=== PATIENT | female | born 1955 | race Caucasian/White ===

== ENCOUNTER 2024-02-27 05:49 | Inpatient (IN) ==
[~2024-02-27 05:49] MED LIST: Metoclopramide 5 MG/ML VIAL (10 mg) IV PRN; NS 0.45% 1000 ml BAG 1,000 ML IV SCH; Naloxone 0.4 mg VIAL 0.4 mg/ml 1 ml VIAL IV PRN; Ondansetron 4 mg VIAL 2 MG/ML 2 ml VIAL IV PRN; fentaNYL 100 mcg/2 ml 50 MCG/ML VIAL IV PRN
[2024-02-27] MEDS ORDERED: ceFAZolin 2 GM PREMIX 2 GM/50 ML BAG ONE (06:23)
[2024-02-27] MEDS ORDERED: Scopolamine 1 mg/72hr PATCH ONE (06:23)
[2024-02-27] MEDS ORDERED: Tranexamic Acid 1 GM/100ML BAG 0 MG/0 ML BAG IV ONE (06:24)
[2024-02-27] MEDS: Scopolamine 1 mg/72hr PATCH TRANSDERM ONE (06:29)
[2024-02-27 07:04] LABS: Rapid COVID-19 Molecular Undetected (Undetected)
[2024-02-27] MEDS ORDERED: Midazolam 2 mg/2 ml VIAL 1 mg/ml 2 ml VIAL (2 mg) ONE (07:16)
[2024-02-27] MEDS ORDERED: Lidocaine 2% PF 5 ML VIAL ONE (07:16)
[2024-02-27] MEDS ORDERED: fentaNYL 100 mcg/2 ml 50 MCG/ML VIAL ONE (07:16)
[2024-02-27] MEDS ORDERED: Rocuronium 50 mg VIAL 10 mg/ml 5 ml VIAL (50 mg) ONE (07:16)
[2024-02-27] MEDS ORDERED: Propofol 10 MG/ML 20 ML BTL ONE (07:16)
[2024-02-27] MEDS ORDERED: Dexamethasone IV 4 MG/ML VIAL 1 ml VIAL ONE (07:43)
[2024-02-27] MEDS ORDERED: Ondansetron 4 mg VIAL 2 MG/ML 2 ml VIAL ONE (07:43)
[2024-02-27] MEDS ORDERED: HYDROmorphone 0.5 MG/0.5 ML SYRINGE ONE (07:56)
[2024-02-27] MEDS ORDERED: Bupivacaine 0.5% SDV PF 30ML VIAL ONE (08:24)
[2024-02-27] MEDS ORDERED: Sodium Chloride 0.9% 10 ML ONE (08:57)
[2024-02-27] MEDS ORDERED: Phenylephrine 40 mcg/mL 10mL (400mcg) SYRINGE ONE (08:57)
[2024-02-27] MEDS ORDERED: Magnesium Hydroxide LIQ 30 ML UDC PO PRN (10:23)
[2024-02-27] MEDS ORDERED: Ondansetron 4 mg VIAL 2 MG/ML 2 ml VIAL IV PRN (10:23)
[2024-02-27] MEDS ORDERED: Ondansetron ODT 4 mg TAB 4 MG TAB PO PRN (10:23)
[2024-02-27] MEDS ORDERED: Morphine 2 MG/ML SYRINGE IV PRN (10:23)
[2024-02-27] MEDS ORDERED: Lactulose 30 ml UDC PO PRN (10:23)
[2024-02-27] MEDS: Lactated Ringers 1000 ml BAG 1,000 ML IV SCH ×2 (11:50→12:47)
[2024-02-27] MEDS ORDERED: Carboxymethylcellulose/Glyceri 10 ML OPHTH.GEL lubricant eye gel BOTH EYES PRN (12:22)
[2024-02-27] MEDS: Buffered Lidocaine 1% SYRIN 1 ml INTRADERM ONE (12:47)
[2024-02-27] MEDS: Acetaminophen IV 1 GM/100ML 1,000 MG/100 ML BAG IV ONE (12:47)
[2024-02-27] MEDS: ceFAZolin 2 GM PREMIX 2 GM/50 ML BAG IV SCH (18:49)
[2024-02-27] MEDS: Magnesium Hydroxide LIQ 30 ML UDC PO SCH (23:16)
[2024-02-28] MEDS: Cholecalciferol (VIT D3) 400 units TAB PO SCH (08:30)
[2024-02-28] MEDS: Vitamin THERAPEUTIC TAB PO SCH (08:30)
[2024-02-28] MEDS: Fluticasone NASAL SPRAY 50MCG 16 gm SPRAY BTL INTRANASAL SCH (08:33)
[2024-02-28 10:18] VITALS: BP 119/60
== END 2024-02-28 10:30 | disposition home or self-care (01) | DRG 502 ==
LOC: SSU 05:49 → OR 05:49 → OBSVTOIN 11:37
PROVIDERS: ADMIT Orthopaedic Surgery; ATTEND Orthopaedic Surgery
PROC: [UNRECOGNIZED PROCEDURE] (2024-02-27 07:30)